=== PATIENT | female | born 1960 | race Caucasian/White ===

== ENCOUNTER → 2016-12-08 | Outpatient (CLI) | payer BC ==
[~2016-12-08] MED LIST: ATV/1 PO; CYCL10TA6 PO; FLUO10CA48 PO; FLUO1TAB12 PO; FLX/5 PO; IBUP-1050 PO; LACT1TAB4 PO; PRMVC PV; RIZA10TA18 PO; RIZA1TAB11 PO; TELM1TAB8 PO; TELM80TA PO; ULT/50 PO; VERA240T20 PO; VRPSR240 PO
[2016-12-08 16:53] LABS: URINE APPEARANCE CLEAR (CLEAR); URINE BILIRUBIN NEG (NEG); URINE COLOR YELLOW; URINE EPITHELIAL CELL AUTO >30 /lpf (0-5); URINE NITRITE POS (NEG); URINE PH 7.5 (4.5-7.5); URINE SPECIFIC GRAVITY 1.014 (1.000-1.030); UROBILINOGEN NEG (NEG)
[2016-12-08 16:54] LABS: MANUAL MICROSCOPIC REQUIRED? NO; REVIEW REQ? NO
== END | disposition home or self-care (01) ==
LOC: C.LABBC 13:41
PROVIDERS: ATTEND Internal Medicine
DX: R39.9 Unspecified symptoms and signs involving the genitourinary system (principal)

== ENCOUNTER → 2016-12-30 | Outpatient (CLI) | payer BC ==
--- NOTE | 2016-12-30 12:45 | DIAGNOSTIC IMAGING REPORT ---
RENAL ULTRASOUND HISTORY: N39.0 Urinary tract infection, site unspecified COMPARISON: Abdomen and pelvis CT 01/28/2014. FINDINGS: Right kidney: 10.5 cm. No hydronephrosis. Normal corticomedullary differentiation and cortical thickness. Left kidney: 11.3 cm. No hydronephrosis. Normal corticomedullary differentiation and cortical thickness. Bladder: No bladder wall thickening. The bilateral ureteral jets were identified. IMPRESSION: Normal renal ultrasound. Electronically signed by: Brody Evans M.D. 12/30/2016 12:44 PM Dictated Date/Time: 12/30/2016 12:43 PM
== END | disposition home or self-care (01) ==
LOC: C.ULTR 12:08
PROVIDERS: ATTEND Nurse Practitioner Family
DX: N39.0 Urinary tract infection, site not specified (principal)

== ENCOUNTER 2017-01-27 17:05 | Emergency (ER) | payer BC ==
[~2017-01-27] VITALS: Ht 157.5 cm; Wt 65.7 kg
[~2017-01-27 17:05] MED LIST changes: -FLUO1TAB12 PO; -FLX/5 PO; -PRMVC PV; -RIZA1TAB11 PO; -TELM1TAB8 PO; -ULT/50 PO; -VRPSR240 PO
[2017-01-27 17:09] VITALS: TEMP 37; Ht 157.5 cm; Wt 65.7 kg
[2017-01-27] MEDS ORDERED: DOXYCYCLINE HYCLATE 100 MG CAP PO ONE (17:45)
[2017-01-27] MEDS ORDERED: XYLOCAINE 1%/SOD BICARB 20 ML VIAL INFIL ONE (17:45)
[2017-01-27] MEDS ORDERED: VRPSR240 PO (17:53)
[2017-01-27] MEDS ORDERED: RIZA1TAB11 PO (17:53)
[2017-01-27] MEDS ORDERED: TELM1TAB8 PO (17:53)
[2017-01-27] MEDS ORDERED: FLX/5 PO (17:53)
[2017-01-27] MEDS ORDERED: PRMVC PV (17:53)
[2017-01-27] MEDS ORDERED: FLUO1TAB12 PO (17:53)
[2017-01-27 18:06] VITALS: BP 178/113; PULSE 61; O2SAT 96
--- NOTE | 2017-01-28 00:24 | EMERGENCY ROOM VISIT NOTE ---
History First contact with patient: 17:26 Chief Complaint: BITE Stated Complaint: TICK BITE ON NECK History of Present Illness The patient is a 56 year old female who presents to the Emergency Room with complaints of a tick bite to the neck. The patient reports that she initially noticed this on her neck yesterday. She thought it was a mole. When she looked at it again this morning, she then noticed that it had legs. She tried to remove the tick but was unable to fully remove it. The patient believes that the tick could have been attached upwards of 48-72 hours. She presents to the emergency department for further reevaluation. Tetanus immunization is up- to-date. She denies any significant pain. Review of Systems 10 system review was performed and was negative except for pertinent positives and negatives as indicated in history of present illness Past Medical/Surgical History Medical Problems: (1) Abdominal pain (2) Abdominal pain (3) C. difficile colitis (4) C. difficile colitis (5) C. difficile diarrhea (6) C. difficile diarrhea (7) Chest pain (8) Chest pain (9) Colitis (10) Dehydration (11) Dehydration, moderate (12) Diarrhea (13) Diarrhea (14) Diverticulitis of colon (15) Fibromyalgia (16) Hypertension (17) Hypokalemia (18) Hypotension (19) Leukocytosis (20) Migraines (21) Pneumonia (22) Uncontrolled pain Family History Diabetes mellitus FH: cancer FH: heart disease Hypertension Social History Smoking Status: Former Smoker Alcohol Use: none Marital Status: Housing Status: lives with family Occupation Status: unemployed Current/Historical Medications Scheduled Estrogens, Conjugated (Premarin), 1 APPLN PV UD Fluoxetine Hcl (Fluoxetine Hcl), 20 MG PO DAILY Lactobacillus (Floranex), 1 TAB PO TIDM Telmisartan (Telmisartan), 80 MG PO QAM Verapamil HCl (Verapamil HCl ER), 240 MG PO HS Scheduled PRN Cyclobenzaprine HCl (Cyclobenzaprine HCl), 5-10 MG PO TID PRN for Muscle Spasm Ibuprofen (Advil), 200-600 MG PO UD PRN for Pain Rizatriptan Benzoate (Rizatriptan Benzoate), 10 MG PO UD PRN for Migraine Allergies Coded Allergies: Pregabalin (Unverified Allergy, Severe, ANAPHYLAXIS, 05/22/16) patient swells Cephalosporins (Unverified Allergy, Unknown, HIVES, 05/22/16) Penicillins (Unverified Allergy, Unknown, HIVES, 05/22/16) Shellfish (Verified Allergy, Unknown, ., 05/22/16) Uncoded Allergies: bahamian cheese (Allergy, Mild, GI SYMPTOMS, 05/18/14) Physical Exam Vital Signs Date Time Temp Pulse Resp B/P Pulse Ox O2 Delivery O2 Flow Rate FiO2 01/27/17 18:06 61 18 178/113 96 Room Air 01/27/17 17:09 37.0 71 18 186/108 97 Room Air Pain Rating (0-10): 0 Physical Exam CONSTITUTIONAL: Healthy and well nourished. Alert and oriented X 3 with positive affect. HEENT: Normocephalic, atraumatic. Pupils equal, round and reactive. NECK: Full active range of motion without discomfort. No nuchal rigidity. LYMPHATICS: No cervical chain adenopathy. RESPIRATORY: Clear to auscultation bilaterally with no wheezing, crackles, rhonchi or stridor. CARDIOVASCULAR: Regular rate and rhythm with no murmurs, rubs or gallops. MUSCULOSKELETAL: Full range of motion of all joints without discomfort. INTEGUMENTARY: Examination of the left anterior lateral neck shows remnants of a tick. The patient did bring the body of the tick with her, and examination shows that it is a deer tick. There is no peripheral erythema at the site of the bite. There is no skin trauma from home tick removal. NEUROLOGIC: No focal neurologic deficits noted. Medical Decision & Procedures Medications Administered Medications (Trade) Dose Ordered Sig/Patrick Route Start Time Stop Time Status Last Admin Dose Admin Doxycycline Hyclate (Vibramycin Cap) 200 mg ONE ONCE PO 01/27/17 17:45 01/27/17 17:46 DC 01/27/17 18:04 200 MG Procedure The patient did request tick removal under local anesthesia. Using buffered 1% lidocaine without epinephrine, a good local wheel was administered. The area was painted with iodine and allowed to dry. Using a 27-gauge needle, the tick head was elevated and sharply depleted using a #15 scalpel. The wound was then cleansed, and a bacitracin dressing applied. ED Course Patient history and physical exam were performed. Nurse's notes were reviewed. The patient requested that the tick head be removed. This was performed under local anesthesia. Because the patient is uncertain how long the tick has been attached, she was prophylactically treated with doxycycline 200 mg orally. She was instructed to keep the wound clean, watching for any signs of infection. Although she was treated with doxycycline, she was instructed to watch for any developing bull's-eye rash consistent with erythema migrans. The patient was happy with plan of care, and voiced understanding of all discharge instructions. It is noted that the patient's blood pressure was elevated while in the emergency department. She has a known history of hypertension. She was encouraged to keep a blood pressure journal twice daily, and follow up with her PCP for further reevaluation. Medical Decision Impression Primary Impression: Tick bite Additional Impression: Hypertension Departure Information Dispostion Home / Self-Care Condition GOOD Referrals Dennis Patterson M.D. (PCP) Forms HOME CARE DOCUMENTATION FORM, IMPORTANT VISIT INFORMATION Patient Instructions Bites Tick, [employer] Additional Instructions Keep wound clean and covered with an antibiotic ointment and dressing until it heals. Follow-up with your family doctor as needed for further concerns, especially if you develop any other rash in the future. Problem Qualifiers Primary Impression: Tick bite Encounter type: initial encounter Qualified Codes: W57.XXXA - Bitten or stung by nonvenomous insect and other nonvenomous arthropods, initial encounter
== END 2017-01-27 18:30 | disposition home or self-care (01) ==
LOC: C.EDB 17:06 → C.EDD 18:30
DX: S11.95XA Open bite of unspecified part of neck, initial encounter (principal); W57.XXXA Bitten or stung by nonvenomous insect and other nonvenomous arthropods, initial encounter; I10 Essential (primary) hypertension; K57.30 Diverticulosis of large intestine without perforation or abscess without bleeding; Z86.19 Personal history of other infectious and parasitic diseases; Z87.891 Personal history of nicotine dependence; Z79.899 Other long term (current) drug therapy; Z88.0 Allergy status to penicillin; Z88.8 Allergy status to other drugs, medicaments and biological substances; Z91.018 Allergy to other foods; Z83.3 Family history of diabetes mellitus; Z80.9 Family history of malignant neoplasm, unspecified; Z82.49 Family history of ischemic heart disease and other diseases of the circulatory system

== ENCOUNTER → 2017-03-02 | Outpatient (CLI) | payer BC ==
[~2017-03-02] MED LIST changes: -ATV/1 PO; -CYCL10TA6 PO; -FLUO10CA48 PO; +FLUO1TAB12 PO; +FLX/5 PO; +PRMVC PV; -RIZA10TA18 PO; +RIZA1TAB11 PO; +TELM1TAB8 PO; -TELM80TA PO; -VERA240T20 PO; +VRPSR240 PO
--- NOTE | 2017-03-03 14:42 | MAMMOGRAPHY REPORT ---
BILATERAL DIGITAL SCREENING MAMMOGRAM TOMOSYNTHESIS WITH CAD: 03/02/2017 CLINICAL HISTORY: Routine screening examination. TECHNIQUE: Breast tomosynthesis in addition to standard 2D mammography was performed. Current study was also evaluated with a Computer Aided Detection (CAD) system. COMPARISON: Comparison is made to exams dated: 02/18/2016 mammogram, 10/16/2015 mammogram, 5 ultrasound, 01/22/2015 mammogram, and 01/22/2015 mammogram - [facility]. BREAST COMPOSITION: The tissue of both breasts is heterogeneously dense, which may obscure small ma sses. FINDINGS: The parenchymal pattern is unchanged. No developing mass, architectural distortion or clu ster of suspicious microcalcifications is seen in either breast. IMPRESSION: ACR BI-RADS CATEGORY 2: BENIGN There is no mammographic evidence of malignancy. A 1 year screening mammogram is recommended. The p atient will receive written notification of the results. Approximately 10% of breast cancers are not detected with mammography. A negative mammographic repor t should not delay biopsy if a clinically suggestive mass is present. Mary Salvador M.D. ay/:03/02/2017 22:34:19 Mis Specialist: Guillermina PLATA)(Shahzad), [facility] letter sent: Normal 1/2 BI-RADS Code: ACR BI-RADS Category 2: Benign
== END | disposition home or self-care (01) ==
LOC: C.MAMM 12:23
PROVIDERS: ATTEND Internal Medicine
DX: Z12.31 Encounter for screening mammogram for malignant neoplasm of breast (principal)

== ENCOUNTER → 2017-07-13 | Outpatient (CLI) | payer BC ==
[2017-07-13 10:29] LABS: ALT/SGPT 16 U/L (12-78); BLOOD UREA NITROGEN 10 mg/dl (7-18); BUN/CREATININE RATIO 12.6 (10-20); CALCIUM 9.2 mg/dl (8.5-10.1); CARBON DIOXIDE 29 mmol/L (21-32); CHLORIDE 112 mmol/L (98-107); CHOLESTEROL 201 mg/dl (0-200); GLUCOSE 91 mg/dl (70-99); POTASSIUM 4.7 mmol/L (3.5-5.1); SODIUM 145 mmol/L (136-145); TRIGLYCERIDES 61 mg/dl (0-150); VERY LOW DENSITY LIPOPROT CALC 12 mg/dl
[2017-07-13 10:40] LABS: ALB/GLOB RATIO 1.3 (0.9-2); ALKALINE PHOSPHATASE 52 U/L (45-117); AST/SGOT 12 U/L (15-37); CHOLESTEROL/HDL RATIO 2.9; HDL CHOLESTEROL 69 mg/dl; LDL CHOLESTEROL CALCULATED 120 mg/dl
== END | disposition home or self-care (01) ==
LOC: C.LAB 09:33
PROVIDERS: ATTEND Internal Medicine
DX: Z13.220 Encounter for screening for lipoid disorders (principal); Z11.59 Encounter for screening for other viral diseases

== ENCOUNTER → 2017-10-20 | Outpatient (CLI) | payer BC | END | disposition home or self-care (01) | LOC: C.PAPS 08:14 | PROVIDERS: ATTEND Obstetrics & Gynecology | DX: Z01.419 Encounter for gynecological examination (general) (routine) without abnormal findings (principal) ==

== ENCOUNTER → 2018-04-07 | Outpatient (CLI) | payer BC ==
--- NOTE | 2018-04-08 07:47 | MAMMOGRAPHY REPORT ---
BILATERAL DIGITAL SCREENING MAMMOGRAM TOMOSYNTHESIS WITH CAD: 04/07/2018 CLINICAL HISTORY: Routine screening. TECHNIQUE: Breast tomosynthesis in addition to standard 2D mammography was performed. Current study was also evaluated with a Computer Aided Detection (CAD) system. COMPARISON: Comparison is made to exams dated: 03/02/2017 mammogram, 02/18/2016 mammogram, 10/16/2015 m ammogram, 10/16/2015 ultrasound, 01/22/2015 mammogram, and 01/22/2015 mammogram - [facility]. BREAST COMPOSITION: The tissue of both breasts is heterogeneously dense, which may obscure small mas ses. FINDINGS: No suspicious masses, calcifications, or areas of architectural distortion are noted in ei ther breast. There has been no significant interval change compared to prior exams. IMPRESSION: ACR BI-RADS CATEGORY 1: NEGATIVE There is no mammographic evidence of malignancy. A 1 year screening mammogram is recommended. The pa tient will receive written notification of the results. Approximately 10% of breast cancers are not detected with mammography. A negative mammographic report should not delay biopsy if a clinically suggestive mass is present. Ирина Meyer M.D. ah/:04/07/2018 13:36:15 Production Team Advisor: Kaylee STARR(R)(M), [facility] letter sent: Normal 1/2 BI-RADS Code: ACR BI-RADS Category 1: Negative
== END | disposition home or self-care (01) ==
LOC: C.MAMM 13:14
PROVIDERS: ATTEND Internal Medicine
DX: Z12.31 Encounter for screening mammogram for malignant neoplasm of breast (principal)